=== PATIENT | male | born 1945 | race Caucasian/White ===

== ENCOUNTER 2023-05-09 08:17 | Outpatient (CLI) | payer MEDICARE, SELFPAY ==
--- NOTE | ~2023-05-09 | XR_ITS ---
Right Knee Technique: AP, lateral, and sunrise views were obtained. Clinical History: Pain Findings: No fracture or dislocation is seen. There is moderate degenerative change of the medial and patellofemoral compartments, with osteophyte formation and probable mild medial compartment narrowin g. There is minimal degenerative change of the lateral compartment. Soft tissues are unremarkable. No joint effusion is seen. Impression: Moderate degenerative change of the medial and patellofemoral compartments. Minimal degenerative change of the lateral compartment. Reviewed, dictated and finalized at location M. Impression: Moderate degenerative change of the medial and patellofemoral compartments. Minimal degenerative change of the lateral compartment.
--- NOTE | ~2023-05-09 | XR_ITS ---
Left Knee Technique: AP, lateral, and sunrise views were obtained. Clinical History: Pain Findings: No fracture or dislocation is seen. There is moderate degenerative change of the medial and patellofemoral compartments, with prominent osteophyte formation and medial compartment narrowing. T here is mild degenerative change of the lateral compartment. Soft tissues are unremarkable. No joint effusion is seen. 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 Reviewed, dictated and finalized at location M. Impression: Tricompartmental osteoarthritis, worst at the medial and patellofemoral compart ment, as detailed above.
== END 2023-05-09 08:18 | disposition home or self-care (01) ==
PROVIDERS: PCP Family Medicine; Visit Provider Physician Assistant
DX: M17.0 Bilateral primary osteoarthritis of knee (principal)
CPT/HCPCS: 73562

== ENCOUNTER 2023-05-29 06:44 | Day surgery (SDC) | payer MEDICARE, SELFPAY ==
[2023-05-24 12:36] VITALS: BMI 27.6
--- NOTE | 2023-05-29 06:57 | PM.HPGS ---
History of Present Illness History of Present Illness Consent: Risks, benefits, and alternatives have been discussed and questions answered. Patient agrees to proceed with procedure. Chief complaint: neoplasm screening Narrative: Huy Cleary is a 78 year old male For colon cancer screening. Review of Systems Review of Systems: All systems reviewed & are unremarkable except as noted in HPI and below PMFSH Past Medical History Medical History Benign essential HTN Surgical History Surgical History H/O melanoma excision Family History Family History Father Hypertension Mother Hypertension Social History Social History Social History: Smoking status: Never smoker Second hand tobacco smoke exposure: No Alcohol intake: never Substance use: never Substance use type: does not use Lack of Transportation: No Lack of Food: Never True Current Housing: I Have Housing Concerned About Future Housing: No Difficulty Paying Gas/Electric Bills: No Difficulty Paying for Meds: No Currently Unemployed: YES Education: Decline to Answer Difficulty w/ Childcare or Family Care: No Living arrangements: with family Occupation/Education: retired Gender identity (if verbalized by the patient): Male Sexual Orientation (if Verbalized by the Patient): Straight or Heterosexual Spiritual care concerns: No Meds Home Medications and Allergies Home Medications Medication Instructions Recorded Confirmed Type amlodipine 5 mg tablet 5 mg PO DAILY 04/02/23 05/24/23 History metoprolol tartrate 50 mg tablet 50 mg PO BID 04/02/23 05/24/23 History rosuvastatin 10 mg tablet 10 mg PO DAILY #30 tabs 04/12/23 05/24/23 Rx aspirin 81 mg tablet,delayed 81 mg PO DAILY 05/24/23 05/24/23 History release multivitamin with minerals-folic 1 tablet PO DAILY 05/24/23 05/24/23 History acid 0.4 mg tablet lisinopril 40 mg tablet 40 mg PO DAILY #90 tabs 05/27/23 05/29/23 Rx Allergies Allergy/AdvReac Type Severity Reaction Status Date / Time No Known Allergies Allergy Verified 05/29/23 08:14 Exam Const: General: alert Orientation/consciousness: patient oriented x3 Resp: Auscultation: clear to auscultation bilaterally Cardio: Rhythm: regular rhythm GI: GI Palp: Yes Soft to palpation and No Tenderness to palpation present (GI) Neuro: General: patient oriented x3 Assessment and Plan Assessment and plan (1) Colon cancer screening: Code(s): Z12.11 - Encounter for screening for malignant neoplasm of colon Status: Acute Assessment and Plan: Colonoscopy with possible biopsy or polypectomy or cautery or injection of substances.
[2023-05-29 08:17] VITALS: BP 121/72; PULSE 57; RESP 18; TEMP 36.2; O2SAT 94
[2023-05-29] MEDS: LACTATED RINGERS 1,000 ML 150 ML IV CONT (08:38)
--- NOTE | 2023-05-29 09:20 | WPDANESEPPF ---
Anes - Initial Pre Proc Eval Procedure: Operation Date: 05/29/23 12:30 Proposed Procedures p Screening Colonoscopy - Huy Hall MD Date/Time: 05/29/23 09:20 Surgeon: Huy Hall MD Pre Op Diagnosis: neoplasm screening Patient Data Age: 78 Gender: M Height: 1.85 m Weight: 92.9 kg Last Vital Signs Temp 97.1 F L 05/29/23 08:17 Pulse 57 L 05/29/23 08:17 Resp 18 05/29/23 08:17 BP 121/72 05/29/23 08:17 Pulse Ox 94 05/29/23 08:17 O2 Del Method Room Air 05/29/23 08:17 Allergies Allergy/AdvReac Type Severity Reaction Status Date / Time No Known Allergies Allergy Verified 05/29/23 08:14 Home Medications Medication Instructions Recorded Confirmed Type amlodipine 5 mg tablet 5 mg PO DAILY 04/02/23 05/24/23 History metoprolol tartrate 50 mg tablet 50 mg PO BID 04/02/23 05/24/23 History rosuvastatin 10 mg tablet 10 mg PO DAILY #30 tabs 04/12/23 05/24/23 Rx aspirin 81 mg tablet,delayed 81 mg PO DAILY 05/24/23 05/24/23 History release multivitamin with minerals-folic 1 tablet PO DAILY 05/24/23 05/24/23 History acid 0.4 mg tablet lisinopril 40 mg tablet 40 mg PO DAILY #90 tabs 05/27/23 05/29/23 Rx Patient hx anesthesia problems: none Family hx anesthesia problems: none Results Review: All pre-operative results and documents have been reviewed as part of the pre-operative evaluation. [facility] Past Medical History Medical History Benign essential HTN Surgical History Surgical History H/O melanoma excision Family History Family History Father Hypertension Mother Hypertension Social History Social History Social History: Smoking status: Never smoker Second hand tobacco smoke exposure: No Alcohol intake: never Substance use: never Substance use type: does not use Lack of Transportation: No Lack of Food: Never True Current Housing: I Have Housing Concerned About Future Housing: No Difficulty Paying Gas/Electric Bills: No Difficulty Paying for Meds: No Currently Unemployed: YES Education: Decline to Answer Difficulty w/ Childcare or Family Care: No Living arrangements: with family Occupation/Education: retired Gender identity (if verbalized by the patient): Male Sexual Orientation (if Verbalized by the Patient): Straight or Heterosexual Spiritual care concerns: No Anes - Eval Final PreProcedure Day of Procedure 05/29/23 09:20 Patient weight: normal Heart: regular rate and rhythm Lungs: clear to auscultation Airway: Mallampati scale class II Neurological: alert and oriented Last oral intake: >/= 8 hours ASA classification: II Emergent: no Anesthetic plan: proceed Anesthesia type and monitoring: general GIVS and standard monitoring Results Review: All pre-operative results and documents have been reviewed as part of the pre-operative evaluation. Informed Consent: The patient's anesthetic plan and its attendant risks and benefits were discussed with the patient/family/POA. Questions were solicited and answers provided to the satisfaction of the patient/family/POA.
[2023-05-29 09:54] VITALS: BP 96/45; PULSE 51; RESP 17; O2SAT 100
[2023-05-29 10:04] VITALS: BP 133/67; PULSE 58; RESP 18; O2SAT 98
[2023-05-29 10:14] VITALS: BP 142/69; PULSE 54; RESP 17; O2SAT 98
== END 2023-05-29 10:24 | disposition home or self-care (01) ==
PROVIDERS: PCP Family Medicine; Visit Provider Internal Medicine Gastroenterology
PROC: 0DJD8ZZ Inspection of Lower Intestinal Tract, Via Natural or Artificial Opening Endoscopic (ICD-10-PCS; CPT 45378; principal; 2023-05-29 12:30)
DX: Z12.11 Encounter for screening for malignant neoplasm of colon (principal); K57.30 Diverticulosis of large intestine without perforation or abscess without bleeding; K64.8 Other hemorrhoids; I10 Essential (primary) hypertension; Z79.82 Long term (current) use of aspirin
CPT/HCPCS: G0121; J2704; J7120

== ENCOUNTER 2023-07-02 08:04 | Outpatient (CLI) | payer MEDICARE, SELFPAY ==
--- NOTE | ~2023-07-02 | US_ITS ---
EXAMINATION: US renal BI DATE: 07/02/2023 09:01 INDICATION: Disorder of kidney and ureter, unspecified. TECHNIQUE: Multiple ultrasound grayscale images of the kidneys were obtained. COMPARISON: None. FINDINGS: The right kidney measures 10.6 x 5.2 x 4.8 cm. The left kidney measures 10.4 x 5.5 x 6.2 cm. The kidn eys demonstrate normal parenchymal echogenicity. There is moderate hydronephrosis involving left kidn ey upper pole. The bladder is normal. IMPRESSION: 1. Moderate hydronephrosis involving left kidney upper pole. Reviewed, dictated and finalized at location A.
== END 2023-07-02 08:05 | disposition home or self-care (01) ==
PROVIDERS: PCP Family Medicine; Visit Provider Family Medicine
DX: N28.9 Disorder of kidney and ureter, unspecified (principal); N13.30 Unspecified hydronephrosis
CPT/HCPCS: 76775

== ENCOUNTER 2023-08-14 08:49 | Outpatient (CLI) | payer MEDICARE, SELFPAY ==
--- NOTE | ~2023-08-14 | NM_ITS ---
EXAMINATION: AMISHA sr renal scan DATE: 08/14/2023 10:04 INDICATION: Hydronephrosis TECHNIQUE: 7.7 mCi Tc-99m MAG3 was administered IV. 40 mg furosemide was administered IV immediately afterward. A posterior abdominal radionuclide angiogram was obtained. A subsequent time course of st atic images of the kidneys, ureters, and bladder was obtained. COMPARISON: None FINDINGS: The posterior abdominal radionuclide angiogram and sequential static images show normal size, positio n, and morphology of the kidneys. Peak renal parenchymal uptake was 5.3 min in left kidney and 5.3 mi n in right kidney (normal peak 3-5 minutes). The relative early renal uptake was 34% on the left and 66% on the right (<40% is abnormal). No evidence of a dilated renal pelvis to suggest hydronephrosis . No abnormalities of the ureters or bladder are seen. T1/2 for clearance of activity from the left kidney and proximal collecting system was 23 minutes. T1/2 for clearance of activity from the right kidney and proximal collecting system was 20 minutes. Notes on interpretation: T1/2 <10 minutes is normal, 10-15 minutes is low grade obstruction of questi onable clinical significance, 15-20 minutes is partial obstruction that is likely clinically signific ant, >20 minutes is high grade obstruction. Note that false positives may be seen with supine positio susy, dehydration, severely dilated nonobstructed kidney, atonic collecting system, poor renal functi on, and chronic furosemide use. IMPRESSION: 1. Asymmetric decreased left renal function which contributes only 34% of total renal activity. 2. Relatively similar degree of significant delayed clearance of activity from both kidneys which qu antitatively would be consistent with high-grade obstruction however there is no evident correspondin g hydronephrosis on the scintigraphic images in either kidney suggesting alternative etiology such as poor renal function or dehydration. Reviewed, dictated and finalized at location A. IMPRESSION: 1. Asymmetric decreased left renal function which contributes only 34% of tota l renal activity. 2. Relatively similar degree of significant delayed clearance of activity from both kidneys which quantitatively would be consistent with high-grade obstruct ion however there is no evident corresponding hydronephrosis on the scintigraph ic images in either kidney suggesting alternative etiology such as poor renal f unction or dehydration.
== END 2023-08-14 08:50 | disposition home or self-care (01) ==
PROVIDERS: PCP Family Medicine; Visit Provider Urology
DX: N13.30 Unspecified hydronephrosis (principal)
CPT/HCPCS: 78708; A9562; J1940

== ENCOUNTER 2024-04-25 08:08 | Outpatient (CLI) | payer MEDICARE, SELFPAY ==
--- NOTE | ~2024-04-25 | XR_ITS ---
XR knee RT 3V DATE: 04/25/2024 08:55 INDICATION: Bilateral knee pain. Osteoarthritis. TECHNIQUE: [place] and standing AP and lateral views COMPARISON: 05/09/2023 right knee FINDINGS: Small suprapatellar knee joint effusion. Moderate patellofemoral osteoarthritic change is again noted. There is severe osteoarthritis at the medial compartment with increased loss of joint space, with dustin r [id number]. Mild. 2 sprain of the lateral tibial plateau. There is subtle chondrocalcinosis. Osteopenia. No fracture or dislocation, periosteal reaction or bone destruction. IMPRESSION: New small suprapatellar knee joint effusion since 05/09/2023 Osteoarthritis of patellofemoral and particularly severely at the medial compartment, with increased loss of joint space at the medial compartment since 05/10/2022 and potential [id number] Mild osteoarthritis of lateral compartment Subtle chondrocalcinosis Osteopenia Reviewed, dictated and finalized at location A. IMPRESSION: New small suprapatellar knee joint effusion since 05/09/2023 Osteoarthritis of patellofemoral and particularly severely at the medial compar tment, with increased loss of joint space at the medial compartment since 2021 and potential [id number] Mild osteoarthritis of lateral compartment Subtle chondrocalcinosis Osteopenia
--- NOTE | ~2024-04-25 | XR_ITS ---
XR knee LT 3V DATE: 04/25/2024 08:55 INDICATION: Knee pain. Osteoarthritis. TECHNIQUE: [place] and standing AP and lateral views COMPARISON: None FINDINGS: There is very prominent periarticular spurring of the patellofemoral joint, severe joint sp nenita loss of medial compartment with periarticular spurring. There is mild prevertebral spurring at th e lateral compartment. There is prominent suprapatellar knee joint effusion. Osteopenia. No fracture, dislocation, periosteal reaction or bone destruction. No radiopaque intra-articular loos e body is noted. Subtle mild chondrocalcinosis. IMPRESSION: Interval suprapatellar knee joint effusion since 05/09/2023 Severe osteoarthritis of the patellofemoral and medial compartments Increased severity of medial compartment joint space loss Osteopenia Reviewed, dictated and finalized at location A.
== END 2024-04-25 08:09 ==
PROVIDERS: PCP Orthopaedic Surgery; Visit Provider Physician Assistant
DX: M85.861 Other specified disorders of bone density and structure, right lower leg (principal); M17.0 Bilateral primary osteoarthritis of knee; M85.862 Other specified disorders of bone density and structure, left lower leg
CPT/HCPCS: 73562

== ENCOUNTER 2024-06-19 15:23 | Outpatient (CLI) | payer MEDICARE, SELFPAY ==
--- NOTE | 2024-06-19 15:30 | ECG_ITS ---
Test Date: 2024-06-19 15:35:32 Measurements Intervals [place] Rate: 55 P: 12 NC: 227 QRS: 6 QRSD: 86 T: 30 QT: 422 QTc: 404 Interpretive Statements SINUS BRADYCARDIA WITH FIRST DEGREE AV BLOCK OTHERWISE NORMAL ECG No previous ECG available for comparison Electronically Signed On 06-19-2024 18:21:25 CDT by Louis Walsh M.D.
== END 2024-06-19 15:24 | disposition home or self-care (01) ==
LOC: ANHLAB 15:25
PROVIDERS: PCP Family Medicine; Visit Provider Orthopaedic Surgery
DX: Z01.818 Encounter for other preprocedural examination (principal); I12.9 Hypertensive chronic kidney disease with stage 1 through stage 4 chronic kidney disease, or unspecified chronic kidney disease; N18.9 Chronic kidney disease, unspecified
CPT/HCPCS: 93005

== ENCOUNTER 2024-07-17 07:52 | Outpatient (CLI) | payer MEDICARE, SELFPAY ==
[2024-07-17 09:13] LABS: Basophils Percent Auto 0.3 % (0.2-1.2); Eosinophils Absolute Auto 0.2 K/mm3 (0-0.3); Eosinophils Percent Auto 2.7 % (0-4.4); Hematocrit 38.7 % (42.0-52.0); Hemoglobin 13.1 g/dL (14.0-18.0); Immature Granulocyte Absolute 0.01 K/mm3 (0.00-0.031); Immature Granulocyte Percent A 0.2 % (0-0.5); Lymphocytes Absolute Auto 1.58 K/mm3 (0.9-3.2); Lymphocytes Percent Auto 26.8 % (18.3-44.2); Mean Corpuscular HGB Conc 33.9 g/dl (32-36); Mean Corpuscular Hemoglobin 32.9 pg (26-34); Mean Corpuscular Volume 97.2 fl (80-100); Mean Platelet Volume 10.4 fl (7.4-10.4); Monocytes Absolute Auto 0.5 K/mm3 (0.1-0.6); Monocytes Percent Auto 7.6 % (2.6-8.5); Neutrophils Absolute Auto 3.7 K/mm3 (1.3-6.7); Neutrophils Percent Auto 62.4 % (45.5-73.1); Platelet Count Result 152 k/mm3 (150-375); Red Blood Count 3.98 M/mm3 (4.6-6.20); Red Cell Distribution Width 13.1 % (11.5-14.5); White Blood Count 5.9 K/mm3 (4.5-10.0)
[2024-07-17 09:26] LABS: Prothrombin Time 13.8 Seconds (11.1-14.7)
[2024-07-17 09:27] LABS: Partial Thromboplastin Time 30.7 Seconds (22.3-36.8)
[2024-07-17 09:54] LABS: Urine Cotinine NEGATIVE
[2024-07-17 10:22] LABS: MRSA (PCR) NOT DETECTED (NOT DETECTE)
[2024-07-17 12:11] LABS: Hemoglobin A1C 5.6 % (<5.7)
== END 2024-07-17 07:53 | disposition home or self-care (01) ==
PROVIDERS: Anesthesiology; PCP Family Medicine; Visit Provider Orthopaedic Surgery
DX: Z01.818 Encounter for other preprocedural examination (principal); N18.31 Chronic kidney disease, stage 3a; M17.11 Unilateral primary osteoarthritis, right knee
CPT/HCPCS: 36415; 80307; 83036; 85025; 85610; 85730; 87641

== ENCOUNTER 2024-08-10 00:52 | Day surgery (SDC) | payer MEDICARE, SELFPAY ==
[2024-07-17 08:17] VITALS: BP 149/60; PULSE 52; RESP 16; TEMP 36.6; O2SAT 98; BMI 29.1
--- NOTE | 2024-07-17 08:37 | PC.NURSE ---
Report to the Outpatient Waiting Room, entrance under the green pavilion located off [facility], at time __10:00AM_ on date _08/10/24_. Planned Procedure Time: __12:00PM .? Time changes happen often and if your time is changed the preop area will call you the afternoon before. - You and your visitor will be asked to self-screen and do not enter if you have any COVID symptoms. Please call surgeon if you need to reschedule. - A mask is optional within the hospital at this time. Patients may have clear liquids (water, carbonated beverages, clear teas, apple juice) until 3 hours prior to surgery with a maximum of 20 ounces. - No food from midnight until time of surgery and no smoking. Take only the following medications with a SIP of water on the morning of surgery: ___METOPROLOL DO NOT STOP ANY OF YOUR OTHER PRESCRIPTION MEDICATIONS PRIOR TO SURGERY EXCEPT THE FOLLOWING Medications to discontinue per physician ___HOLD ASPIRIN 7 DAYS PRE-OP PER DR DIETZ- LAST DOSE 08/02/24. HOLD ALL VITAMINS/SUPPLEMENTS 3 DAYS PRE-OP PER ANESTHESIA- LAST DOSE 08/06/24 Please no make-up, nail lao, hairspray, perfume, deodorant, or body powder the day of surgery.? No jewelry (including any body piercings) or valuables the day of surgery, leave them at home.? Please take a shower or bath the night before, or the morning of, surgery with an antibacterial soap.? Wear comfortable, loose fitting clothing.? - Jewelry must be removed prior to entering the operating room.? Rings and piercings that are not removed may be cut off. - The hospital will not accept responsibility for valuables.? - Please leave all valuables, including medications, at home the day of surgery. If you are going home after surgery, a licensed driver guard must drive you home.? - NO public transportation without another adult if you receive anesthesia. - We recommend that an adult stay with you for 24 hours following discharge. - We also recommend that you do not drive, make important decision, drink alcoholic beverages, or take any drugs that were not prescribed by your health care provider for at least 24 hours after your discharge time. Follow any additional instructions given to you from your surgeon. Telephone instructions given to ____PATIENT and asked if any additional questions and then verbalized understanding. Patient advised to call surgeon office or pre surgery nurse liaison [phone] if any additional questions.
[2024-08-10] VITALS (12 sets, daily range): BP systolic 123–172; BP diastolic 57–94; PULSE 53–70; RESP 12–18; TEMP 35.9–37.3; O2SAT 94–100
--- NOTE | ~2024-08-10 | XR_ITS ---
EXAMINATION: [id number] DATE: 08/10/2024 15:28 INDICATION: Right knee arthroplasty. Postop. TECHNIQUE: 2 views of right knee were obtained. COMPARISON: None. FINDINGS: There is a total right knee arthroplasty with patellar resurfacing. Tibia demonstrates 6 de grees medial angulation with respect to the tibial component. No fracture. There is gas in the knee j oint and soft tissues, consistent with recent surgery. IMPRESSION: 1. New total right knee arthroplasty. Reviewed, dictated and finalized at location A.
[2024-08-10] MEDS: ACETAMINOPHEN 500 MG TABLET 1000 MG PO (10:28)
[2024-08-10] MEDS: TRANEXAMIC ACID 1,000MG/ISO100 1,000 MG/100 ML BAG 200 MG IVPB (11:14)
[2024-08-10] MEDS: LACTATED RINGERS 1,000 ML 30 ML IV CONT ×2 (11:14→15:10)
--- NOTE | 2024-08-10 11:39 | WPDANESEPPF ---
Anes - Initial Pre Proc Eval Procedure: Operation Date: 08/10/24 12:00 Proposed Procedures p Right Total Knee Arthroplasty - George Palumbo MD Date/Time: 08/10/24 11:39 Surgeon: George Palumbo MD Pre Op Diagnosis: Prim O A Rt Knee Patient Data Age: 79 Gender: M Height: 1.85 m Weight: 99.8 kg Last Vital Signs Temp 35.9 C L 08/10/24 11:31 Pulse 53 L 08/10/24 11:31 Resp 16 08/10/24 11:31 BP 146/76 H 08/10/24 11:31 Pulse Ox 98 08/10/24 11:31 O2 Del Method Room Air 08/10/24 11:31 Allergies Allergy/AdvReac Type Severity Reaction Status Date / Time No Known Allergies Allergy Verified 08/10/24 10:16 Home Medications Medication Instructions Recorded Confirmed Type aspirin 81 mg tablet,delayed 81 mg PO DAILY 05/24/23 07/17/24 History release multivitamin with minerals-folic 1 tablet PO DAILY 05/24/23 07/17/24 History acid 0.4 mg tablet rosuvastatin 10 mg tablet See Rx Instructions .Route 04/14/24 07/17/24 Rx .COMPLEX #90 tabs metoprolol tartrate 50 mg tablet 50 mg PO BID #180 tabs 05/01/24 08/10/24 Rx acetaminophen 650 mg 1,300 mg PO Q12H PRN Pain 06/05/24 07/17/24 History tablet,extended release cetirizine 10 mg capsule 10 mg PO DAILY PRN Allergic 06/05/24 07/17/24 History Symptoms diphenhydramine 25 1 tablet PO QHS PRN Insomnia 06/05/24 07/17/24 History mg-acetaminophen 500 mg tablet famotidine 20 mg tablet 20 mg PO DAILY 06/05/24 07/17/24 History mecobalamin (vitamin B12) 5,000 5,000 mcg PO DAILY 06/05/24 07/17/24 History mcg chewable tablet mv,iron,fto-BZ-busgpox supplement 1 tablet PO DAILY 06/05/24 07/17/24 History comb. no.24 400 mcg tablet lisinopril 40 mg tablet 20 mg PO QAM 07/17/24 07/17/24 History Laboratory Tests 08/10/24 10:58 Blood Type Pending Antibody Screen Pending Patient hx anesthesia problems: none Family hx anesthesia problems: none Results Review: All pre-operative results and documents have been reviewed as part of the pre-operative evaluation. [facility] Past Medical History Medical History Benign essential HTN Degenerative arthritis of knee, bilateral Surgical History Surgical History H/O melanoma excision Family History Family History Father Hypertension Mother Hypertension Kidney disease Social History Social History Social History: Smoking status: Never smoker Second hand tobacco smoke exposure: No Alcohol intake: never Substance use: never Substance use type: does not use Do You Feel Safe in your Home?: Yes Lack of Transportation: No Lack of Food: Never True Current Housing: I Have Housing Concerned About Future Housing: No Difficulty Paying Gas/Electric Bills: No Difficulty Paying for Meds: No Currently Unemployed: No Education: Associate Degree Difficulty w/ Childcare or Family Care: No Living arrangements: with family Additional living arrangements comments: Occupation/Education: retired Gender identity (if verbalized by the patient): Male Sexual Orientation (if Verbalized by the Patient): Straight or Heterosexual Spiritual care concerns: No Anes - Eval Final PreProcedure Day of Procedure 08/10/24 11:39 Patient weight: overweight Heart: regular rate and rhythm Lungs: clear to auscultation Airway: Mallampati scale class II Neurological: alert and oriented Last oral intake: >/= 8 hours ASA classification: III Emergent: no Anesthetic plan: proceed Anesthesia type and monitoring: general LMA and standard monitoring Results Review: All pre-operative results and documents have been reviewed as part of the pre-operative evaluation. Informed Consent: The patient's anesthetic kain
[2024-08-10] MEDS: ceFAZolin 2 GM/D5W 50 ML 2 GM/50 ML BAG IVPB ×2 (12:07→20:10)
--- NOTE | 2024-08-10 12:09 | WPDHPUPDATE1 ---
History and Physical Update Update Date/Time: 08/10/24 12:09 History and Physical has been reviewed, including an updated exam of the patient. There are NO changes in the patient's condition. Risks, benefits, and alternatives have been discussed and questions answered. Patient agrees to proceed with procedure.
[2024-08-10] MEDS: SODIUM CHLORIDE 0.9% IV 37.7 ML, MORPHINE SULFATE INJ (*CRX) 2 MG, ROPivacaine HCL 1% 2... INFILTRATE (12:42)
[2024-08-10] MEDS: TRANEXAMIC ACID 1,000 MG/10 ML AMPUL 1000 MG IV PUSH (14:45)
--- NOTE | 2024-08-10 15:37 | W.PM.PROC2 ---
Procedure Note - Detailed Date of Procedure 08/10/24 Pre-op Diagnosis Severe osteoarthritis right knee. Post-op Diagnosis Same Procedure Performed [place], kinematically aligned total knee replacement right knee. Surgeon George Palumbo MD Anesthesia General Indications Severe degenerative arthritis of the knee. Failed conservative treatment. Significant preoperative contracture. Findings According to the calipered kinematic alignment principles, the knee was balanced by the following verification checks incorporating 6 caliper measurements, using an insert goniometer to select the insert thickness, and adjusting the tibial resection following the kinematic alignment algorithm (see figure 160.10 published in [employer] chapter on kinematic alignment total knee arthroplasty.) The steps verified the femoral and tibial components were kinematically aligned coincident to the patient's pre arthritic joint lines, which closely restored the [place] tibial compartment forces and ligament laxities without ligament release. The [employer] knee, designed specifically for kinematic alignment, fit optimally. The record of verification checks were documented and scanned into the chart. Distal Femoral Resection: Distal Medial 6 mm(cartilage worn), Distal Lateral 8 mm Target thickness of 8mm Unworn, 6mm Worn (No Cartilage). Posterior Femoral Resection: Posterior Medial 5 mm(cartilage worn), Posterior Lateral 7 mm. Target thickness of 7mm Unworn, 5mm Worn (No Cartilage). Tibia varus preoperative 6?; postoperative 6?. Tibia slope preoperative 5 ?; postoperative 5?. Femur valgus preoperative 7?; postoperative 7?. Description of Procedure General anesthesia was administered. A well-padded tourniquet was placed high on the thigh. The limb was prepped and draped in the usual sterile fashion. The limb was exsanguinated and the tourniquet inflated to 300 mmHg during exposure and cementation. A longitudinal incision was created over the midline of the knee. Sharp dissection was taken through subcutaneous tissues. Electrocautery was used for hemostasis. A trivector approach to the knee joint was performed. The ACL, anterior horns of the menisci, and fat pad were excised, and a subperiosteal dissection was carried along the posterior medial border of the tibia. The thickness of the [place] patella was measured with a caliper. The patella was resected using the oscillating saw. The best fitting anatomic patella button was selected. The fixation holes were drilled. When the patella and patella buttons combined thickness was thicker than the [place] patella, the patella was recut. Starting midway between the top of the notch in the anterior femoral cortex, I drilled a 9 mm diameter hole parallel to the anterior cortex to minimize flexion of the femoral component and promote patella tracking. I verified the existence of a 5-10 mm bone bridge between the posterior aspect of the hole and the anterior limit of the intercondylar notch. An intraosseous positioning moo was inserted 10 cm into the femur perpendicular to the distal joint line and parallel to the anterior cortex. I used a distal femoral referencing guide that compensated 2 mm when the cartilage was worn on the distal medial femoral condyle, and 2 mm when the cartilage was worn on the distal lateral femoral condyle. The basis for setting the distal and posterior femoral resection guide is knowing that the varus and valgus grade II to IV Kellegren-Gael osteoarthritic knees have negligible bone wear at 0? and 90? and that the mean full-thickness cartilage wear approximates 2 mm. I measured the thickness of distal femoral resections with a caliper to +/- 0.5 mm. The thickness of each resection was adjusted to match the thickness of the respective condyle of the femoral component within 0.5 mm of target after compensating for cartilage wear and kerf. When the distal resection was 1-2 mm too thin, a
[2024-08-10] MEDS: predniSONE 5 MG TABLET PO (17:09)
[2024-08-10] MEDS: MELOXICAM 7.5 MG TABLET PO (17:09)
[2024-08-10] MEDS: SENNA/DOCUSATE SODIUM TABLET 2 TAB PO (17:10)
[2024-08-10] MEDS: ACETAMINOPHEN 325 MG TABLET 650 MG PO (17:10)
[2024-08-10] MEDS: METOPROLOL TARTRATE 50 MG TAB PO (20:22)
[2024-08-10] MEDS: traMADol HCL (*CRX) 50 MG TABLET PO (22:07)
[2024-08-11] MEDS: ceFAZolin 2 GM/D5W 50 ML 2 GM/50 ML BAG IVPB ×2 (04:11→10:53)
[2024-08-11] MEDS: ACETAMINOPHEN 325 MG TABLET 650 MG PO ×2 (05:44→11:15)
[2024-08-11 05:52] VITALS: BP 143/58; PULSE 53; RESP 18; TEMP 36.8; O2SAT 96
[2024-08-11 07:09] LABS: Basophils Percent Auto 0.1 % (0.2-1.2); Hematocrit 36.9 % (42.0-52.0); Hemoglobin 11.9 g/dL (14.0-18.0); Immature Granulocyte Percent A 0.7 % (0-0.5); Lymphocytes Absolute Auto 0.92 K/mm3 (0.9-3.2); Lymphocytes Percent Auto 6.2 % (18.3-44.2); Mean Corpuscular HGB Conc 32.2 g/dl (32-36); Mean Corpuscular Hemoglobin 32.2 pg (26-34); Mean Platelet Volume 10.5 fl (7.4-10.4); Monocytes Percent Auto 6.9 % (2.6-8.5); Neutrophils Absolute Auto 12.7 K/mm3 (1.3-6.7); Neutrophils Percent Auto 86.1 % (45.5-73.1); Platelet Count Result 146 k/mm3 (150-375); Red Blood Count 3.69 M/mm3 (4.6-6.20); Red Cell Distribution Width 12.8 % (11.5-14.5); White Blood Count 14.7 K/mm3 (4.5-10.0)
[2024-08-11 07:19] LABS: Anion Gap 9 mmol/L (4-12); Blood Urea Nitrogen 29 mg/dL (9-20); Carbon Dioxide 25 mmol/L (22-30); Chloride 104 mmol/L (98-107); Estimated CRCL calculation 45 ml/min; Estimated Glomerular Filt Rate 49; Glucose 139 mg/dL (65-110); Potassium 4.5 mmol/L (3.4-5.0); Sodium 138 mmol/L (137-145)
[2024-08-11] MEDS: SENNA/DOCUSATE SODIUM TABLET 2 TAB PO (09:13)
[2024-08-11] MEDS: polyethylene glycoL 3350 17 GM POWD.PACK PO (09:13)
[2024-08-11] MEDS: lisinopriL 20 MG TABLET PO (09:13)
[2024-08-11] MEDS: ROSUVASTATIN 10 MG TABLET BY MOUTH (09:14)
[2024-08-11] MEDS: MELOXICAM 7.5 MG TABLET PO (09:14)
[2024-08-11] MEDS: METOPROLOL TARTRATE 50 MG TAB PO (09:14)
[2024-08-11] MEDS: ASPIRIN 81 MG ENTERIC TABLET PO (09:14)
[2024-08-11] MEDS: THERAPEUTIC MULTIVITAMINS/MINERALS TAB (*BKC) 1 TABLET PO (09:14)
[2024-08-11] MEDS: FAMOTIDINE 20 MG TABLET PO (09:14)
[2024-08-11] MEDS: FOLIC ACID 0.4 MG TABLET PO (09:14)
--- NOTE | 2024-08-11 09:39 | P.PNAN_ITS ---
Anes - Prog Note Post-Op Date/Time: 08/11/24 09:39 Cardiovascular status: normal Respiratory status: normal Airway patency: baseline Mental status: baseline Post-Op hydration status: normal Vital Signs: Last Vital Signs Temp 98.2 F 08/11/24 05:52 Pulse 53 L 08/11/24 05:52 Resp 18 08/11/24 05:52 BP 143/58 H 08/11/24 05:52 Pulse Ox 96 08/11/24 05:52 O2 Del Method Room Air 08/11/24 08:00 O2 Flow Rate 6 08/10/24 15:25 Pain Score (VAS): 0/10 I/O: Intake & Output 08/10/24 08/11/24 08/11/24 23:59 07:59 15:59 Intake Total 340 550 240 Output Total 1200 Balance 340 -650 240 Laboratory Tests 08/11/24 06:41 08/11/24 06:41 08/10/24 08/11/24 10:58 06:41 WBC 14.7 H RBC 3.69 L Hgb 11.9 L Hct 36.9 L MCV 100.0 MCH 32.2 MCHC 32.2 RDW 12.8 Plt Count 146 L MPV 10.5 H Immature Gran % (Auto) 0.7 H Neut % (Auto) 86.1 H Lymph % (Auto) 6.2 L Angelina % (Auto) 6.9 Eos % (Auto) 0.0 Baso % (Auto) 0.1 L Lymph # (Auto) 0.92 Angelina # (Auto) 1.0 H Eos # (Auto) 0.0 Baso # (Auto) 0.0 Abs Immat Gran (auto) 0.10 H Absolute Neuts (auto) 12.7 H Absolute Nucleated RBC 0.000 Nucleated RBC % 0.0 Sodium 138 Potassium 4.5 Chloride 104 Carbon Dioxide 25 Anion Gap 9 BUN 29 H Creatinine 1.40 H Estim Creat Clear Calc 45 Estimated GFR 49 L Glucose 139 H Calcium 9.0 Blood Type A Positive Antibody Screen Negative Post-procedural complaints: none Patient Feedback: Patient satisfied with anesthetic care.
--- NOTE | 2024-08-11 09:46 | PM.DS ---
DS: Admitting Diagnosis Discharge Date 08/11/24 Admitting Diagnosis Knee arthritis. DS: Discharge Diagnosis Discharge Diagnosis (1) Status post total right knee replacement: Code(s): Z96.651 - Presence of right artificial knee joint Status: Acute Plan Postop day 1: Right total knee arthroplasty. Patient tolerated procedure well. No complications. Pain manageable with pain medication. No numbness or tingling. We had a lengthy discussion regarding postoperative wound care, limitations, expectations, and exercises. Patient shows good understanding. He has had initial physical therapy and is tolerating it well. DVT prophylaxis: 81 mg baby aspirin b.i.d. for 14 days. Pain medication: Percocet. Patient has followup appointment with Dr. Palumbo in 3 weeks. DS: Summary Hospital Course Reason for hospitalization: Total knee arthroplasty Hospital Course: Patient tolerated procedure well. Has had initial PT/OT. No complications. Pain well managed. Status at Discharge Functional status at discharge: uses cane/walker Overall status at discharge: patient is progressing back to baseline Time Spent with Patient Time attestation: Total time spent providing and/or coordinating discharge services: Exam Narrative: 79 y/o overweight Male. Resting comfortably in bed. No acute distress. A&O x3. Wearing compression socks bilaterally. Dressing intact with no drainage. Moderate swelling. Small area of ecchymosis. No erythema. No hematoma. Good early range of motion. Calf nontender. Quad fires. Neurologic status intact. No varicosities. Distal pulses palpable. DS: Data Data Completed and Pending Labs on day of discharge: Labs from last 24 hours 08/11/24 08/10/24 06:41 10:58 WBC 14.7 H RBC 3.69 L Hgb 11.9 L Hct 36.9 L MCV 100.0 MCH 32.2 MCHC 32.2 RDW 12.8 Plt Count 146 L MPV 10.5 H Immature Gran % (Auto) 0.7 H Neut % (Auto) 86.1 H Lymph % (Auto) 6.2 L Washburn % (Auto) 6.9 Eos % (Auto) 0.0 Baso % (Auto) 0.1 L Lymph # (Auto) 0.92 Washburn # (Auto) 1.0 H Eos # (Auto) 0.0 Baso # (Auto) 0.0 Abs Immat Gran (auto) 0.10 H Absolute Neuts (auto) 12.7 H Absolute Nucleated RBC 0.000 Nucleated RBC % 0.0 Sodium 138 Potassium 4.5 Chloride 104 Carbon Dioxide 25 Anion Gap 9 BUN 29 H Creatinine 1.40 H Estim Creat Clear Calc 45 Estimated GFR 49 L Glucose 139 H Calcium 9.0 Blood Type A Positive Antibody Screen Negative Discharge Plan Discharge Patient Disposition: Home, Self-Care Discharge Instructions: See green instruction sheets Stand Alone Forms: General Discharge Instructions Follow-up/Referrals: Isabel Betancourt PA [Physician Rn Case Mgr] - Discharge Medications: New prednisone 5 mg tablet 5 mg PO DAILY 21 Days Qty: 21 0RF aspirin 81 mg tablet,delayed release (DR/EC) 81 mg PO BID 14 Days Qty: 28 0RF oxycodone-acetaminophen 5-325 mg tablet 1 - 2 tablet PO Q4-6H PRN (Reason: pain) 7 Days Qty: 30 0RF Continued famotidine 20 mg tablet 20 mg PO DAILY cetirizine 10 mg capsule 10 mg PO DAILY PRN (Reason: Allergic Symptoms) diphenhydramine-acetaminophen 25-500 mg tablet 1 tablet PO QHS PRN (Reason: Insomnia) acetaminophen 650 mg tablet extended release 650 mg PO Q12H PRN (Reason: Pain) mv,iron,dpm-XR-wxutgto cmb.24 400 mcg tablet 1 tablet PO DAILY mecobalamin (vitamin B12) 5,000 mcg tablet,chewable 5,000 mcg PO DAILY aspirin 81 mg Tablet,Delayed Release (Dr/Ec) 81 mg PO DAILY multivit with min-folic acid 0.4 mg Tablet 1 tablet PO DAILY lisinopril 40 mg tablet 20 mg PO QAM rosuvastatin 10 mg tablet See Rx Instructions .ROUTE .COMPLEX Qty: 90 1RF Dose Instruction: TAKE 1 TABLET BY MOUTH DAILY Patient Comments: HS Rx Instructions: TAKE 1 TABLET BY MOUTH DAILY metoprolol tartrate 50 mg tab
[2024-08-11 09:56] VITALS: BP 139/51; PULSE 53; RESP 16; TEMP 36.1; O2SAT 98
[2024-08-11] MEDS: INFLUENZA VACCINE HIGH DOSE (>64) 180 MCG/0.5 ML SYRINGE IM (10:38)
== END 2024-08-11 11:23 | disposition home or self-care (01) ==
LOC: ANHSURGERY 09:59 → ANH3MEDSUR 16:34
PROVIDERS: PCP Family Medicine; Visit Provider Orthopaedic Surgery
PROC: (CPT 27447; principal; 2024-08-10 12:00)
DX: M17.11 Unilateral primary osteoarthritis, right knee (principal); I10 Essential (primary) hypertension; Z79.82 Long term (current) use of aspirin; Z23 Encounter for immunization
CPT/HCPCS: 27447; 36415; 73560; 80048; 80307; 83036; 85025; 85610; 85730; 86850; 86900; 86901; 87641; 90471; 90662; 97110; 97161; 97165; 97530; C1776; A9270; C1713; G0008; J0171; J0461; J0690; J1100; J1596; J1885; J2270; J2405; J2704; J2795; J3010; J7120; J7512

== ENCOUNTER 2024-09-25 08:37 | Outpatient (CLI) | payer MEDICARE, SELFPAY ==
[2024-09-25 10:21] LABS: Basophils Percent Auto 0.5 % (0.2-1.2); Eosinophils Absolute Auto 0.1 K/mm3 (0-0.3); Eosinophils Percent Auto 2.2 % (0-4.4); Hemoglobin 11.8 g/dL (14.0-18.0); Immature Granulocyte Absolute 0.02 K/mm3 (0.00-0.031); Immature Granulocyte Percent A 0.4 % (0-0.5); Lymphocytes Absolute Auto 1.47 K/mm3 (0.9-3.2); Lymphocytes Percent Auto 26.7 % (18.3-44.2); Mean Corpuscular HGB Conc 31.9 g/dl (32-36); Mean Corpuscular Hemoglobin 31.5 pg (26-34); Mean Corpuscular Volume 98.7 fl (80-100); Monocytes Absolute Auto 0.5 K/mm3 (0.1-0.6); Monocytes Percent Auto 9.6 % (2.6-8.5); Neutrophils Absolute Auto 3.3 K/mm3 (1.3-6.7); Neutrophils Percent Auto 60.6 % (45.5-73.1); Platelet Count Result 156 k/mm3 (150-375); Red Blood Count 3.75 M/mm3 (4.6-6.20); Red Cell Distribution Width 13.2 % (11.5-14.5); White Blood Count 5.5 K/mm3 (4.5-10.0)
[2024-09-25 10:37] LABS: Prothrombin Time 13.8 Seconds (11.1-14.7)
[2024-09-25 10:38] LABS: Partial Thromboplastin Time 31.1 Seconds (22.3-36.8)
[2024-09-25 10:39] LABS: Albumin Level 4.2 g/dL (3.5-5.1)
[2024-09-25 11:02] LABS: Urine Cotinine NEGATIVE
[2024-09-25 11:38] LABS: MRSA (PCR) NOT DETECTED (NOT DETECTE)
== END 2024-09-25 08:38 | disposition home or self-care (01) ==
PROVIDERS: Anesthesiology; PCP Family Medicine; Visit Provider Orthopaedic Surgery
DX: M17.12 Unilateral primary osteoarthritis, left knee (principal); Z01.818 Encounter for other preprocedural examination; N18.31 Chronic kidney disease, stage 3a
CPT/HCPCS: 36415; 80307; 82040; 85025; 85610; 85730; 86850; 86900; 86901; 87641

== ENCOUNTER 2024-09-29 00:35 | Day surgery (SDC) | payer MEDICARE, SELFPAY ==
[2024-09-23 13:42] VITALS: BMI 29.9
--- NOTE | 2024-09-23 14:02 | PC.NURSE ---
Report to the Outpatient Waiting Room, entrance under the green pavilion located off [facility], at time ___9:30AM____ on date __09/29/24____. Planned Procedure Time: ____11:30AM____.? Time changes happen often and if your time is changed the preop area will call you the afternoon before. - You and your visitor will be asked to self-screen and do not enter if you have any COVID symptoms. Please call surgeon if you need to reschedule. - A mask is optional within the hospital at this time. Patients may have clear liquids (water, carbonated beverages, clear teas, apple juice) until 3 hours prior to surgery with a maximum of 20 ounces. - No food from midnight until time of surgery and no smoking. Take only the following medications with a SIP of water on the morning of surgery: ____METOPROLOL DO NOT STOP ANY OF YOUR OTHER PRESCRIPTION MEDICATIONS PRIOR TO SURGERY EXCEPT THE FOLLOWING Medications to discontinue per physician HOLD ASPIRIN 7 DAYS PRE-OP PER DR DIETZ- LAST DOSE 09/21/24 HOLD ALL VITAMINS/SUPPLEMENTS 3 DAYS PRE-OP PER ANESTHESIA- LAST DOSE 09/25/24. Please no make-up, nail swiss, hairspray, perfume, deodorant, or body powder the day of surgery.? No jewelry (including any body piercings) or valuables the day of surgery, leave them at home.? Please take a shower or bath the night before, or the morning of, surgery with an antibacterial soap.? Wear comfortable, loose fitting clothing.? - Jewelry must be removed prior to entering the operating room.? Rings and piercings that are not removed may be cut off. - The hospital will not accept responsibility for valuables.? - Please leave all valuables, including medications, at home the day of surgery. If you are going home after surgery, a licensed catering driver must drive you home.? - NO public transportation without another adult if you receive anesthesia. - We recommend that an adult stay with you for 24 hours following discharge. - We also recommend that you do not drive, make important decision, drink alcoholic beverages, or take any drugs that were not prescribed by your health care provider for at least 24 hours after your discharge time. Follow any additional instructions given to you from your surgeon. Telephone instructions given to ____PATIENT and asked if any additional questions and then verbalized understanding. Patient advised to call surgeon office or pre surgery nurse liaison [phone] if any additional questions.
[2024-09-29] VITALS (14 sets, daily range): BP systolic 119–161; BP diastolic 60–86; PULSE 56–69; RESP 12–20; TEMP 36.1–36.8; O2SAT 91–100
--- NOTE | ~2024-09-29 | XR_ITS ---
EXAMINATION: [id number] DATE: 09/29/2024 14:41 INDICATION: Postoperative evaluation following left total knee arthroplasty. TECHNIQUE: Anteroposterior and lateral views of the left knee were obtained. COMPARISON: None. FINDINGS: Left total knee arthroplasty with patellar resurfacing appears well seated and in near anatomic align ment. No fractures identified. Expected postoperative subcutaneous and intra-articular gas. IMPRESSION: 1. Left total knee arthroplasty, negative for postoperative purposes. Reviewed, dictated and finalized at location B. [employer]MENT SAL[employer]ERSON
--- NOTE | 2024-09-29 08:07 | WPDHPUPDATE1 ---
History and Physical Update Update Date/Time: 09/29/24 08:07 History and Physical has been reviewed, including an updated exam of the patient. There are NO changes in the patient's condition. Risks, benefits, and alternatives have been discussed and questions answered. Patient agrees to proceed with procedure.
[2024-09-29] MEDS: ACETAMINOPHEN 500 MG TABLET 1000 MG PO (10:05)
[2024-09-29] MEDS: LACTATED RINGERS 1,000 ML 30 ML IV CONT ×2 (10:10→14:06)
[2024-09-29] MEDS: TRANEXAMIC ACID 1,000MG/ISO100 1,000 MG/100 ML BAG 200 MG IVPB (10:15)
--- NOTE | 2024-09-29 11:14 | P.PNAN_ITS ---
Anes - Initial Pre Proc Eval Procedure: Operation Date: 09/29/24 11:30 Proposed Procedures p Left Total Knee Arthroplasty - George Palumbo MD Date/Time: 09/29/24 11:14 Surgeon: George Palumbo MD Pre Op Diagnosis: primary OA left knee Patient Data Age: 79 Gender: M Height: 1.83 m Weight: 101.6 kg Last Vital Signs Temp 97.3 F L 09/29/24 09:26 Pulse 64 09/29/24 09:26 Resp 18 09/29/24 09:26 BP 155/63 H 09/29/24 09:26 Pulse Ox 98 09/29/24 09:26 O2 Del Method Room Air 09/29/24 09:26 Allergies Allergy/AdvReac Type Severity Reaction Status Date / Time No Known Allergies Allergy Verified 09/23/24 13:37 Home Medications Medication Instructions Recorded Confirmed Type multivitamin with minerals-folic 1 tablet PO DAILY 05/24/23 09/23/24 History acid 0.4 mg tablet rosuvastatin 10 mg tablet See Rx Instructions .Route 04/14/24 09/23/24 Rx .COMPLEX #90 tabs metoprolol tartrate 50 mg tablet 50 mg PO BID #180 tabs 05/01/24 09/23/24 Rx acetaminophen 650 mg 1,300 mg PO Q12H PRN Pain 06/05/24 09/23/24 History tablet,extended release cetirizine 10 mg capsule 10 mg PO DAILY PRN Allergic 06/05/24 09/23/24 History Symptoms diphenhydramine 25 1 tablet PO QHS PRN Insomnia 06/05/24 09/23/24 History mg-acetaminophen 500 mg tablet famotidine 20 mg tablet 20 mg PO DAILY 06/05/24 09/23/24 History lisinopril 40 mg tablet 20 mg PO QAM 07/17/24 09/23/24 History aspirin 81 mg tablet,delayed 81 mg PO DAILY 09/23/24 09/23/24 History release aspirin 81 mg tablet,delayed 81 mg PO BID 14 days #28 tabs 09/29/24 Rx release meloxicam 15 mg tablet 15 mg PO DAILY #30 tabs 09/29/24 Rx oxycodone-acetaminophen 5 mg-325 1 - 2 tablet PO Q4-6H PRN pain 7 09/29/24 Rx mg tablet days #30 tabs prednisone 5 mg tablet 5 mg PO DAILY 3 weeks #21 tabs 09/29/24 Rx Laboratory Tests 09/29/24 09:57 Blood Type A Positive Antibody Screen Pending Patient hx anesthesia problems: none Family hx anesthesia problems: none Results Review: All pre-operative results and documents have been reviewed as part of the pre- operative evaluation. [facility] Past Medical History Medical History Benign essential HTN Degenerative arthritis of knee, bilateral Surgical History Surgical History H/O melanoma excision Family History Family History Father Hypertension Mother Hypertension Kidney disease Social History Social History Social History: Smoking status: Never smoker Second hand tobacco smoke exposure: No Alcohol intake: never Substance use: never Substance use type: does not use Do You Feel Safe in your Home?: Yes Lack of Transportation: No Lack of Food: Never True Current Housing: I Have Housing Concerned About Future Housing: No Difficulty Paying Gas/Electric Bills: No Difficulty Paying for Meds: No Currently Unemployed: No Education: Trade/Vocational Certificate Difficulty w/ Childcare or Family Care: No Living arrangements: with family Additional living arrangements comments: Occupation/Education: retired Gender identity (if verbalized by the patient): Male Sexual Orientation (if Verbalized by the Patient): Straight or Heterosexual Spiritual care concerns: No Anes - Eval Final PreProcedure Day of Procedure 09/29/24 11:14 Patient weight: overweight Heart: regular rate and rhythm Lungs: clear to auscultation Airway: Mallampati scale and special considerations (Some caps, none loose. ) Neurological: alert and oriented Last oral intake: >/= 8 hours ASA classification: II Emergent: no Anesthetic plan: proceed Anesthesia type and monitoring: general LMA and standard monitoring Results Review: All pre-operative results and documents have been reviewed as part of the pre- operative evaluation. HTN, hyperlipidemia, pt doing excellent after contralateral surgery 7 weeks ago. Informed Consent: The patient's anesthetic plan and its attendant risks and benefits were discussed with the patient/family/POA. Questions were solicited and answers provided to the satisfaction of the patient/family/POA.
[2024-09-29] MEDS: ceFAZolin 2 GM/D5W 50 ML 2 GM/50 ML BAG IVPB ×2 (11:39→20:33)
[2024-09-29] MEDS: SODIUM CHLORIDE 0.9% IV 37.7 ML, MORPHINE SULFATE INJ (*CRX) 2 MG, ROPivacaine HCL 1% 2... INFILTRATE (12:47)
[2024-09-29] MEDS: GENTAMICIN BONE CEMENT REFOBACIN 1 EACH TOPICAL (13:22)
--- NOTE | 2024-09-29 14:08 | W.PM.PROC2 ---
Procedure Note - Detailed Date of Procedure 09/29/24 Pre-op Diagnosis Left knee degenerative arthritis. Post-op Diagnosis Same Procedure Performed Calipered, kinematically aligned total knee replacement left knee. Surgeon George Palumbo MD Counting Machine Operator Isabel Betancourt PA-C Anesthesia General Findings According to the calipered kinematic alignment principles, the knee was balanced by the following verification checks incorporating 6 caliper measurements, using an insert goniometer to select the insert thickness, and adjusting the tibial resection following the kinematic alignment algorithm (see figure 160.10 published in [employer] chapter on kinematic alignment total knee arthroplasty.) The steps verified the femoral and tibial components were kinematically aligned coincident to the patient's pre arthritic joint lines, which closely restored the ramona tibial compartment forces and ligament laxities without ligament release. The NGDATAK Race NationriKA knee, designed specifically for kinematic alignment, fit optimally. The record of verification checks were documented and scanned into the chart. Distal Femoral Resection: Distal Medial 6 mm(cartilage worn), Distal Lateral 8 mm Target thickness of 8mm Unworn, 6mm Worn (No Cartilage). Posterior Femoral Resection: Posterior Medial 5 mm(cartilage worn), Posterior Lateral 5 mm(cartilage worn) Target thickness of 7mm Unworn, 5mm Worn (No Cartilage). Description of Procedure General anesthesia was administered. A well-padded tourniquet was placed high on the thigh. The limb was prepped and draped in the usual sterile fashion. The limb was exsanguinated and the tourniquet inflated to 300 mmHg. A longitudinal incision was created over the midline of the knee. Sharp dissection was taken through subcutaneous tissues. Electrocautery was used for hemostasis. A trivector approach to the knee joint was performed. The ACL, anterior horns of the menisci, and fat pad were excised, and a subperiosteal dissection was carried along the posterior medial border of the tibia. The thickness of the ramona patella was measured with a caliper. The patella was resected using the oscillating saw. The best fitting anatomic patella button was selected. The fixation holes were drilled. When the patella and patella buttons combined thickness was thicker than the ramona patella, the patella was recut. Starting midway between the top of the notch in the anterior femoral cortex, I drilled a 9 mm diameter hole parallel to the anterior cortex to minimize flexion of the femoral component and promote patella tracking. I verified the existence of a 5-10 mm bone bridge between the posterior aspect of the hole and the anterior limit of the intercondylar notch. An intraosseous positioning moo was inserted 10 cm into the femur perpendicular to the distal joint line and parallel to the anterior cortex. I used a distal femoral referencing guide that compensated 2 mm when the cartilage was worn on the distal medial femoral condyle, and 2 mm when the cartilage was worn on the distal lateral femoral condyle. The basis for setting the distal and posterior femoral resection guide is knowing that the varus and valgus grade II to IV Kellegren-Gael osteoarthritic knees have negligible bone wear at 0? and 90? and that the mean full-thickness cartilage wear approximates 2 mm. I measured the thickness of distal femoral resections with a caliper to +/- 0.5 mm. The thickness of each resection was adjusted to match the thickness of the respective condyle of the femoral component within 0.5 mm of target after compensating for cartilage wear and kerf. When the distal resection was 1-2 mm too thin, a recut guide was used to adjust the cut. When the distal resection was too thick, a 1 or 2 mm thick washer was fixed to the back of the 4-in-1 chamfer block to javid a corrective gap between the femoral component and distal femur. I set posterior femoral referencing guide at 0? orientation to position the pin holes for the 4 in 1 chamfer block. The nichole wing measured the width of the distal femoral resection and selected the size of the 4 in 1 chamfer block and femoral component. The AP sizer confirmed the size. I measured the thickness of the posterior femoral resections with a caliper before making the anterior and chamfer cuts. I adjusted the thicknesses of each resection to match the thickness of the respective condyle of the femoral component within +/-0.5 mm after compensating for cartilage wear and curve. When a posterior resection femoral resection was 1-2 mm too thick or thin a corrective correction was made by shifting or rotating the 4 in 1 chamfer block as needed. The chamfer block was secured in the correct position with compression screws. The anterior and chamfer femoral resections were made. These caliper measurements and corrections verified that the femoral component was set coincident with the patient's pre-arthritic distal and posterior femoral joint lines. I removed all the medial and lateral femoral and tibial osteophytes to restore the pre arthritic length of the medial and lateral collateral ligaments. I naomi AP lines along the major axis of the lateral tibial plateau in between the tibial spines which identified the flexion extension plane of the knee. A conventional extramedullary tibial resection guide was applied to the ankle. An nichole wing was placed medially in the saw slot. The varus valgus angle of the tibial resection guide was adjusted until the guide paralleled the proximal tibial articular surface after compensating for cartilage and bone wear. The slope of flexion extension angle of the tibial resection guide was adjusted until the nichole wing paralleled the slope of the medial tibia after compensating for wear. The AP axis of the tibial resection guide was adjusted parallel to the two lines. The proximal tibia was resected, partially releasing the insertion of the posterior cruciate ligament. The thickness of the medial and lateral lateral tibial condyle was measured at the base of the tibial spines. I visually verified the slope of the medial border of the resection was parallel to the patient's pre arthritic slope after compensating for cartilage and bone wear. I removed the remnants of the posterior horns of the menisci and posterior osteophytes and cauterized the inferior lateral genicular vessels. The Aquamantys bipolar device was also used to for additional hemostasis. When the knee had a preoperative flexion contracture of 20? or more I teased the capsule off the posterior femur with a curved 3 quarter-inch osteotome. I administered the posterior femoral periosteal injection by delivering 10 cc using a 20 gauge spinal needle at the most medial and 10 cc at the most lateral femoral spur surface which reduced the risk of injury to the posterior neurovascular structures. I followed 6 options in a decision tree to fine tune the varus valgus and posterior slope orientation of the tibial component to restore the patient's pre arthritic tibial joint line and limb alignment. First, I adjusted the varus-valgus orientation of the proximal tibia resection working in 1 degree to 2 degree increments until there was negligible medial and lateral lift off of the distal femoral and proximal tibial resection from the spacer block during a varus valgus laxity assessment in extension. I selected the largest anatomic shape trial tibial base plate that fit within the cortical boundary of the proximal tibial resection. The base plate was best fit parallel to the cortical boundary which set the Internal-external orientation of the anterior to posterior and medial to lateral positions. The best fit method set the AP axis of the tibial base plate and insert parallel to the flexion extension plane of the pre arthritic knee. I pinned the trial tibial base plate, prepared the cruciate slot, and fixed the base plate to the tibia with the cruciate stem. I inserted the trial femoral component. The knee was placed in full extension. Varus valgus laxity is of the knee with trial components were assessed. When asymmetric laxity was observed a 1-2 degree varus or valgus recut guide was used to fine tune the tibial resection until the laxity was 1 degree or less in full extension like the ramona knee. The following steps determined the optimal insert thickness within +/-1 mm. First I inserted an insert goniometer that matched the thickness of the spacer block. I reduced the patella and then with the knee in maximum extension, I verified the knee hyperextended a few degrees and had negligible varus valgus laxity, like the pre arthritic knee. He required a release of the posterior lateral capsule. Next, I measured the external tibial orientation which was the angle the insert goniometer intersected the sagittal line on the medial condyle of the femoral trial component. Then with the knee in 15-30 degrees flexion I verified a 3-4 mm gap in the lateral compartment and no gap in the medial compartment during a 2nd varus valgus laxity test. Next, I placed the knee in 90? of flexion and the foot resting on the operating table and measured the internal tibial orientation. I repeated the steps until I identified the insert thickness that provided the highest external tibia orientation in extension and the highest internal tibial orientation at 90? flexion without anterior lift-off of the insert from the tibial base plate. The insert with this thickness was implanted. I applied a posterior drawer test with the tibia distracted by gravity and verified no posterior subluxation of the tibia relative to the femur. The patella remained centered on the trochlea and tracked well throughout the entire arc of flexion and extension. I used pulse lavage to clean the bony surfaces of debris and dried bone. I cemented the tibial, femoral, and patellar components using 1 bag of methylmethacrylate with Gentamycin, then rechecked the stability at full extension, 15-30 degrees, and 90? flexion and verified taoism of the entire arc of motion of the knee. The circulating nurse confirmed the sponge and needle counts were correct. I used pulse lavage to rinse the joint and wound. The extensor mechanism was closed with interrupted #1 Vicryl suture and #1 running Stratafix suture. The subcutaneous layer was closed with interrupted #1 Vicryl suture followed by 2-0 Stratafix and 3-0 Stratafix. Steri-Strips placed on the skin. Silver impregnated occlusive dressing applied to the wound. A light gauze wrap and Reynold bandage were placed. The patient was transferred to the recovery room in stable condition. There were no complications. Implants Medacta K spheriKA Femoral component SpheriKA size 6, tibial component size 5, vitamin-E flex insert, thickness 10mm, Anatomic patella implant size 4. Estimated Blood Loss 50 Drains No Pathology None sent Complications No immediate complications Condition Stable Disposition PACU [facility] Billing Surgery - Charge Forward: Surgery Billing
--- NOTE | 2024-09-29 14:46 | SUR.PHASEI ---
1445: Simple mask removed.
--- NOTE | 2024-09-29 16:08 | PC.NURSE ---
This patient, Huy Cleary, was admitted to [facility] Surg Room 328-01. Patient/family oriented to hospital policies and general routines including ID bracelet, bed and alarms, visiting hours, pain management, procedures, bathroom and other care routines, personal items, smoking policy, room service/diet, and visiting hours. Information on how to activate the Rapid Response Team has been discussed. Patient/Family are encouraged to report perceived risks to care and to ask questions if they do not understand what they are told or what they should do.
[2024-09-29] MEDS: MELOXICAM 7.5 MG TABLET PO (16:50)
[2024-09-29] MEDS: SODIUM CHLORIDE 0.9% IV 1,000 ML 125 ML IV CONT (16:50)
[2024-09-29] MEDS: SENNA/DOCUSATE SODIUM TABLET 2 TAB PO (16:50)
[2024-09-29] MEDS: predniSONE 5 MG TABLET PO (16:51)
[2024-09-29] MEDS: ACETAMINOPHEN 325 MG TABLET 650 MG PO (16:51)
[2024-09-29] MEDS: ASPIRIN 81 MG ENTERIC TABLET PO (20:42)
[2024-09-29] MEDS: ROSUVASTATIN 10 MG TABLET PO (20:42)
[2024-09-29] MEDS: METOPROLOL TARTRATE 50 MG TAB PO (20:42)
[2024-09-30 00:35] VITALS: BP 137/52; PULSE 59; RESP 18; TEMP 36.4; O2SAT 99
[2024-09-30] MEDS: ceFAZolin 2 GM/D5W 50 ML 2 GM/50 ML BAG IVPB ×2 (04:18→10:25)
[2024-09-30 04:45] VITALS: BP 158/60; PULSE 54; RESP 14; TEMP 36.3; O2SAT 99
[2024-09-30] MEDS: ACETAMINOPHEN 325 MG TABLET 650 MG PO ×2 (05:17)
[2024-09-30 06:44] LABS: Basophils Percent Auto 0.1 % (0.2-1.2); Hemoglobin 10.7 g/dL (14.0-18.0); Immature Granulocyte Absolute 0.07 K/mm3 (0.00-0.031); Immature Granulocyte Percent A 0.7 % (0-0.5); Lymphocytes Absolute Auto 0.95 K/mm3 (0.9-3.2); Lymphocytes Percent Auto 9.1 % (18.3-44.2); Mean Corpuscular HGB Conc 33.4 g/dl (32-36); Mean Corpuscular Hemoglobin 32.2 pg (26-34); Mean Corpuscular Volume 96.4 fl (80-100); Mean Platelet Volume 9.9 fl (7.4-10.4); Monocytes Absolute Auto 0.7 K/mm3 (0.1-0.6); Monocytes Percent Auto 6.7 % (2.6-8.5); Neutrophils Absolute Auto 8.7 K/mm3 (1.3-6.7); Neutrophils Percent Auto 83.4 % (45.5-73.1); Platelet Count Result 151 k/mm3 (150-375); Red Blood Count 3.32 M/mm3 (4.6-6.20); Red Cell Distribution Width 13.2 % (11.5-14.5); White Blood Count 10.4 K/mm3 (4.5-10.0)
[2024-09-30 06:57] LABS: Anion Gap 5 mmol/L (4-12); Blood Urea Nitrogen 26 mg/dL (9-20); Calcium 8.7 mg/dL (8.4-10.2); Carbon Dioxide 27 mmol/L (22-30); Chloride 105 mmol/L (98-107); Estimated CRCL calculation 53 ml/min; Estimated Glomerular Filt Rate 54; Glucose 129 mg/dL (65-110); Potassium 4.8 mmol/L (3.4-5.0); Sodium 137 mmol/L (137-145)
[2024-09-30 08:00] VITALS: PULSE 86; RESP 14; O2SAT 99
--- NOTE | 2024-09-30 08:09 | P.DS_ITS ---
DS: Admitting Diagnosis Discharge Date 09/30/24 Admitting Diagnosis Knee arthritis. DS: Discharge Diagnosis Discharge Diagnosis (1) Status post total left knee replacement: Code(s): Z96.652 - Presence of left artificial knee joint Status: Acute Plan Postop day 1: Left total knee arthroplasty. Patient tolerated procedure well. No complications. Pain manageable with pain medication. No numbness or tingling. We had a lengthy discussion regarding postoperative wound care, limitations, expectations, and exercises. Patient shows good understanding. He has had initial physical therapy and is tolerating it well. DVT prophylaxis: 81 mg baby aspirin b.i.d. for 14 days. Pain medication: Percocet. Meloxicam. Prednisone. Patient has followup appointment with Dr. Palumbo in 3 weeks. DS: Summary Hospital Course Reason for hospitalization: Total knee arthroplasty Hospital Course: Patient tolerated procedure well. Has had initial PT/OT. No complications. Pain well managed. Status at Discharge Functional status at discharge: uses cane/walker Overall status at discharge: patient is progressing back to baseline Time Spent with Patient Time attestation: Total time spent providing and/or coordinating discharge services: Exam Narrative: 79 y/o overweight Male. Resting comforta primo in bed. No acute distress. A&O x3. Wearing compression socks bilaterally. Dressing intact with no drainage. Moderate swelling. Small area of ecchymosis. No erythema. No hematoma. Good early range of motion. Calf nontender. Quad fires. Neurologic status intact. No varicosities. Distal pulses palpable. DS: Data Data Completed and Pending Labs on day of discharge: Labs from last 24 hours 09/30/24 09/29/24 06:28 09:57 WBC 10.4 H RBC 3.32 L Hgb 10.7 L Hct 32.0 L MCV 96.4 MCH 32.2 MCHC 33.4 RDW 13.2 Plt Count 151 MPV 9.9 Immature Gran % (Auto) 0.7 H Neut % (Auto) 83.4 H Lymph % (Auto) 9.1 L Payne % (Auto) 6.7 Eos % (Auto) 0.0 Baso % (Auto) 0.1 L Lymph # (Auto) 0.95 Payne # (Auto) 0.7 H Eos # (Auto) 0.0 Baso # (Auto) 0.0 Abs Immat Gran (auto) 0.07 H Absolute Neuts (auto) 8.7 H Absolute Nucleated RBC 0.000 Nucleated RBC % 0.0 Sodium 137 Potassium 4.8 Chloride 105 Carbon Dioxide 27 Anion Gap 5 BUN 26 H Creatinine 1.30 Estim Creat Clear Calc 53 Estimated GFR 54 L Glucose 129 H Calcium 8.7 Blood Type A Positive Antibody Screen Negative Discharge Plan Discharge Patient Disposition: Home, Self-Care Discharge Instructions: see green instruction sheet Stand Alone Forms: General Discharge Instructions Follow-up/Referrals: Isabel Betancourt PA [Physician Assistant Project Engineer] - Discharge Medications: New meloxicam 15 mg tablet 15 mg PO DAILY Qty: 30 0RF Rx Instructions: Cut in half. Take 1/2 in morning and 1/2 at night. Take with food. Stop if stomach upset. prednisone 5 mg tablet 5 mg PO DAILY 21 Days Qty: 21 0RF aspirin 81 mg tablet,delayed release (DR/EC) 81 mg PO BID 14 Days Qty: 28 0RF oxycodone-acetaminophen 5-325 mg tablet 1 - 2 tablet PO Q4-6H PRN (Reason: pain) 7 Days Qty: 30 0RF Continued famotidine 20 mg tablet 20 mg PO DAILY cetirizine 10 mg capsule 10 mg PO DAILY PRN (Reason: Allergic Symptoms) diphenhydramine-acetaminophen 25-500 mg tablet 1 tablet PO QHS PRN (Reason: Insomnia) aspirin 81 mg tablet,delayed release (DR/EC) 81 mg PO DAILY multivit with min-folic acid 0.4 mg Tablet 1 tablet PO DAILY lisinopril 40 mg tablet 20 mg PO QAM rosuvastatin 10 mg tablet See Rx Instructions .ROUTE .COMPLEX Qty: 90 1RF Dose Instruction: TAKE 1 TABLET BY MOUTH DAILY Patient Comments: HS Rx Instructions: TAKE 1 TABLET BY MOUTH DAILY metoprolol tartrate 50 mg tablet 50 mg PO BID Qty: 180 1RF Held acetaminophen 650 mg tablet extended release 1,300 mg PO Q12H PRN (Reason: Pain) Hold Instructions: Resume on 10/13/24. no more than 3,000 mg in 24 hours. Oxycodone has tylenol with it.
[2024-09-30] MEDS: FAMOTIDINE 20 MG TABLET PO (08:23)
[2024-09-30] MEDS: SENNA/DOCUSATE SODIUM TABLET 2 TAB PO (08:23)
[2024-09-30] MEDS: lisinopriL 20 MG TABLET PO (08:23)
[2024-09-30 08:24] VITALS: PULSE 86
[2024-09-30] MEDS: METOPROLOL TARTRATE 50 MG TAB PO (08:24)
[2024-09-30] MEDS: polyethylene glycoL 3350 17 GM POWD.PACK PO (08:24)
[2024-09-30] MEDS: ASPIRIN 81 MG ENTERIC TABLET PO (08:24)
[2024-09-30] MEDS: MELOXICAM 7.5 MG TABLET PO (08:24)
== END 2024-09-30 10:25 | disposition home or self-care (01) ==
LOC: ANHSURGERY 10:33 → ANH3MEDSUR 15:51
PROVIDERS: Physician Assistant Surgical; PCP Family Medicine; Visit Provider Orthopaedic Surgery
PROC: (CPT 27447; principal; 2024-09-29 11:30)
DX: M17.12 Unilateral primary osteoarthritis, left knee (principal); I10 Essential (primary) hypertension
CPT/HCPCS: 27447; 36415; 73560; 80048; 80307; 82040; 85025; 85610; 85730; 86850; 86900; 86901; 87641; 97110; 97161; 97165; C1776; A9270; C1713; J0171; J0690; J1100; J1885; J2270; J2405; J2704; J2795; J7030; J7120; J7512